=== PATIENT | female | born 1965 | race Caucasian/White ===

== ENCOUNTER 2018-10-05 14:51 | Emergency (ER) | payer MEDICAID, OTHER ==
[~2018-10-05] VITALS: Ht 167.6 cm; Wt 104.5 kg
[~2018-10-05 14:51] MED LIST: IBUP-1542 PO
[2018-10-05 15:15] VITALS: BP 125/89; PULSE 88; RESP 17; Ht 167.6 cm; Wt 104.5 kg
--- NOTE | 2018-10-05 15:15 | EN ---
Date/Time of Note Date/Time of Note DATE: 10/05/18 TIME: 15:14 ER Progress Note [id number]-old female slipped on wet floor in [facility]. Has bilateral knee pain and low back pain. Has right trapezius pain as well. No history of head injury or loss of consciousness. ED 2 appropriate for x-ray review and medication. MICKI GUTIERREZ MD Oct 05, 2018 15:15
--- NOTE | 2018-10-05 18:02 | ERD ---
ER Documentation Chief Complaint Chief Complaint PT BIB AMBULANCE DUE TO BILAT KNEE PAIN, BACK PAIN S/P GLF, NO KO HPI This is a previously healthy 53-year-old female presenting to the emergency department complaining of left knee pain and low back pain after a fall which occurred just prior to arrival. The patient was walking in a store when there was a wet floor causing her to slip and fall. She reports pain which is rated 7/10 severity in the left knee in the low back. Denies any midline tenderness of the back. She did not hit her head. There is no loss of consciousness. She denies any other symptoms or injuries at this time. She took no medication for relief of symptoms prior to arrival. ROS All systems reviewed and are negative except as per history of present illness. Medications Home Meds Active Scripts Ibuprofen* (Motrin*) 600 Mg Tab, 600 MG PO Q6, #30 TAB Prov:DIAZ MORA PA-C 10/05/18 Allergies Allergies: Coded Allergies: No Known Allergy (Unverified , 10/05/18) PMhx/Soc History of Surgery: Yes (Mariajose) Anesthesia Reaction: No Hx Miscellaneous Medical Probl: Yes (Hypothyroidsm) Hx Alcohol Use: No Hx Substance Use: No Hx Tobacco Use: No Smoking Status: Never smoker FmHx Family History: No diabetes Physical Exam Vitals Vital Signs Date Temp Pulse Resp B/P (MAP) Pulse Ox O2 O2 Flow FiO2 Time Delivery Rate 10/05/18 98.0 88 17 125/89 99 15:15 (101) Physical Exam Const: No acute distress Head: Atraumatic Eyes: Normal Conjunctiva ENT: Normal External Ears, Nose and Mouth. Neck: Full range of motion. No meningismus. Resp: Clear to auscultation bilaterally Cardio: Regular rate and rhythm, no murmurs Abd: Soft, non tender, non distended. Normal bowel sounds Skin: No petechiae or rashes Back: Tenderness palpation of the paraspinal muscles of the lumbar spine. No midline tenderness. No step-offs. Ext: Soft tissue swelling and tenderness palpation diffusely over the left knee. Slight limited range of motion of the left knee secondary to pain. Unable to complete anterior/posterior drawer test secondary to pain. No obvious deformities or open fractures noted. Patient is neurovascularly intact distally. Neur: Awake and alert Psych: Normal Mood and Affect Results 24 hrs [facility] [address], [place], [place] [address] Radiology Main Line: [phone] DIAGNOSTIC IMAGING REPORT Patient: LOUISJUNE : 1965 Age: 53 Sex: F MR #: [id number] DOS: 10/05/18 1513 Ordering MD: MICKI GUTIERREZ MD Location: FTE Room/Bed: PROCEDURE: XR Knee. CLINICAL INDICATION: Pain status post fall. TECHNIQUE: AP, lateral, tunnel and sunrise views of the right and left knees were obtained. COMPARISON: None. FINDINGS: Right knee: Bony cortices are smooth and contiguous. Minimal mild medial compartment joint space narrowing is observed. Osteophytes are seen throughout the compartments of the knee with larger osteophytes projecting from the posterior margin of the patella. Slight lateral subluxation of the patella is observed. Mild enthesophyte formation is observed at the quadriceps attachment o f the patella. There is no evidence of joint effusion or lipohemarthrosis. Left knee: Bony cortices are smooth and contiguous. Minimal mild medial compartment joint space narrowing is observed. Osteophytes are seen throughout the compartments of the knee with larger osteophytes projecting from the posterior margin of the patella. Slight lateral subluxation of the patella is observed. Mild enthesophyte formation is observed at the quadriceps attachment of the patella. There is no evidence of joint effusion or lipohemarthrosis. IMPRESSION: Mild bilateral knee osteoarthritis with more prominent degenerative changes within the patellofemoral joints. RPTAT: QQ .Lola Ha MD, Date Time Electronically viewed and signed by .Lola Ha MD, on 10/05/2018 16:14 .T/ CC: MICKI GUTIERREZ MD [id number] [place] [id number] Radiology Main Line: [phone] DIAGNOSTIC IMAGING REPORT Patient: LOUISJUNE : 1965 Age: 53 Sex: F MR #: [id number] DOS: 10/05/18 0000 Ordering MD: MICKI GUTIERREZ MD Location: FT Room/Bed: PROCEDURE: XR Lumbar Spine. CLINICAL INDICATION: Pain status post fall. TECHNIQUE: Lumbar spine x-rays, 3 views. COMPARISON: None. FINDINGS: Vertebral body heights are normal. Trace anterolisthesis of L4 over L5 is observed. Intervertebral disc heights are normal. The posterior elements are aligned. Mild facet degenerative changes of the lower lumbar spine are observed. Paravertebral soft tissues are unremarkable. IMPRESSION: Minimal mild facet degenerative changes of the lower lumbar spine with trace ant erolisthesis of L4 over L5. RPTAT: QQ .Lola Ha MD, MD Date Time Electronically viewed and signed by .Lola Ha MD, MD on 10/05/2018 16:10 .T/ CC: MICKI GUTIERREZ MD [id number] Procedures/MDM 53-year-old female presented to the emergency department complaining of low back pain and left knee pain after a fall which occurred just prior to arrival. X- rays were negative for sign of fracture. Full reports interpreted by the radiologist may be viewed above. Patient required a knee immobilizer of the left lower extremity as well as a cane to prevent exacerbation of possible ligamental or tendon damage. splint Assessment: Neurovascularly intact post splint placement with good fit. No evidence to suggest compartment syndrome, fracture, significant ligamental or tendon injury, intracranial hemorrhage or other emergent process. Patient will be discharged home in stable condition with prescriptions to further treat her symptoms as an outpatient. Patient was advised to follow-up with her primary care physician within 24 to 48 hours and return here immediately for any new or concerning symptoms. She was in agreement with the diagnosis, plan, need for follow-up, return precautions. Patient's blood pressure was elevated (>120/80) but appears stable without evidence of hypertension emergency or urgency. The patient is to follow-up and pursue outpatient monitoring and therapy with their primary care physician within 1 week and return immediately if they have any new, worsening, or concerning symptoms. Departure Diagnosis: Primary Impression: Injury of left knee Additional Impression: Fall with no significant injury Condition: Fair Patient Instructions: Fall Prevention Referrals: [facility] 7 a.m.- 11 p.m. Every Day of the Week NO APPOINTMENT OR AUTHORIZATION NEEDED [facility] Hours: Thu-Thu 9:00 AM - 5:00 PM Additional Instructions: SPECIALIST: YOU HAVE A MEDICAL CONDITION WHICH REQUIRES YOU TO SEE A SPECIALIST WITHIN THE NEXT 1-2 DAYS. PLEASE FOLLOW UP WITH YOUR PRIMARY PHYSICIAN FOR REFFERAL.IF YOU DO NOT HAVE A PRIMARY CARE PHYSICIAN AND/OR YOU CAN NOT AFFORD TO SEE A PHYSICIAN THE FOLLOWING RESOURCES HAVE BEEN SUPPLIED TO YOU. IT IS YOUR RESPONSIBILITY TO BE SEEN BY THE SPECIALIST: OR[facility] DIAZ MORA PA-C Oct 05, 2018 18:02
== END 2018-10-05 17:25 | disposition home or self-care (01) ==
LOC: FTE 14:51
DX: S89.92XA Unspecified injury of left lower leg, initial encounter (principal); E03.9 Hypothyroidism, unspecified; W01.0XXA Fall on same level from slipping, tripping and stumbling without subsequent striking against object, initial encounter; Y92.512 Supermarket, store or market as the place of occurrence of the external cause
CPT/HCPCS: 29505; 72100; 73564; Z7502